=== PATIENT | female | born 1935 | race Two or more races ===

== ENCOUNTER 2016-11-21 16:24 | Observation (INO) | payer MEDICARE ==
[~2016-11-21] VITALS: Ht 152.4 cm; Wt 54.6 kg
[~2016-11-21 16:24] MED LIST: AMLO5TAB2 PO; Clopidogrel Bisulfate PO; LISI40TA PO; LOVA20TA PO; METO-394 PO; RANI150C4 PO
--- NOTE | 2016-11-21 16:33 | ED.REPORT ---
HPI-General Illness Date of Service Nov 21, 2016 ED Provider: Adrian Martinez MD Patient is a 80 year old female with a history of CVA and hypertension who presents to the ED complaining of chest pain onset around 1300. The patient reports that the pain is exacerbated when she tried to walk and improved after resting. She rates the pain as a 7/10 and describes it as an ache. She states that it is in the middle of her chest and radiates up to her arms. Upon arrival to the ED, the patient states that her pain has largely resolved. She denies cough, nausea, vomiting, shortness of breath, fever, chills, vision changes, headache, abdominal pain, diarrhea, constipation, hematuria, hematochezia, rash, itching or sore throat. Nursing Notes Stated Complaint: CHEST PAIN Nursing Notes Reviewed: Yes Allergies: Coded Allergies: sulfamethoxazole (Verified Adverse Reaction, Intermediate, diarrhea, GI upset, 10/09/14) trimethoprim (Verified Adverse Reaction, Intermediate, diarrhea, GI upset , 10/09/14) Scheduled Amlodipine (Amlodipine) 5 Mg Tablet 10 MG PO every afternoon Clopidogrel (Clopidogrel) 75 Mg Tablet 75 MG PO QAM Lisinopril (Lisinopril) 40 Mg Tablet 40 MG PO DAILY Lovastatin (Lovastatin) 20 Mg Tablet 20 MG PO HS Metoprolol Succinate ER (Metoprolol Succinate ER) 100 Mg Tab.er.24h 100 MG PO DAILY Scheduled PRN Ranitidine (Ranitidine) 150 Mg Capsule 150 MG PO BID PRN PRN For Dyspepsia or Heartburn General Time Seen by MD: 16:32 Chief Complaint Chest pain Hx Obtained From: Patient Arrived By: Walk-in Sudden in Onset?: Yes Onset Occurred: 1 - 4 hours ago Symptom Duration: Since onset Location: : Chest Quality: Aching Radiation: : Shoulder Severity: Current: Mild Recent Healthcare: Recent doctor visit Similar Sx Previous: No Past Medical History Past Medical History CVA in 2006 with no residual side effects Hypertension GERD High cholesterol Past Surgical History Cataracts Smoking History Smoker Current Status UNK Social History Alcohol Use: Denies alcohol use Drug Use: Denies drug use Other Social History: Ambulatory Status Independent Review of Systems Full Review of Systems Constitutional: Denies: Chills, Fever Ears / Nose / Throat: Denies: Sore throat Respiratory: Denies: Non-productive cough, Shortness of breath Cardiovascular: Reports: Chest pain GI: Denies: Abdominal pain, Constipation, Diarrhea, Hematochezia, Nausea, Vomiting Female: Denies: Hematuria Musculoskeletal: Reports: Extremity pain Skin: Denies Itching, Denies Rash Neurologic: Denies: Headache, Vision change Complete sys rev & neg: except as marked. Physical Exam Nursing note and vitals reviewed. Constitutional: Well-developed, well-nourished. Not diaphoretic. Head: Normocephalic and atraumatic. Mouth/Throat: Oropharynx is clear and moist. No oropharyngeal exudate. Eyes: EOM are normal. Pupils are equal, round, and reactive to light. Neck: Supple, no tracheal deviation. Cardiovascular: Normal rate, 2/6 systolic murmur present. Equal and intact distal pulses throughout. Pulmonary/Chest: Effort normal and breath sounds normal. No respiratory distress. Abdominal: Soft. No distension. There is no tenderness, rebound, or guarding. Bowel sounds present. Musculoskeletal: Range of motion grossly intact, moving all extremities. No edema or tenderness appreciated. Neurological: AOx3. Grossly nonfocal exam. Strength and sensation intact and equal to bilateral upper and lower extremities. Skin: Warm and dry, no rashes or pallor appreciated. Psychiatric: Appropriate mood and affect. Behavior appears normal. Vital Signs Vital Signs Date Time Temp Pulse Resp B/P Pulse Ox O2 Delivery O2 Flow Rate FiO2 11/21/16 20:43 86 18 137/85 98 11/21/16 19:22 78 16 137/81 98 11/21/16 17:43 74 19 125/57 97 11/21/16 16:34 36.7 84 19 134/59 96 Room Air Initial VS: Reviewed Interpretation & Diagnostics Lab Results Interpretation Result Diagram: 11/21/16 1645 11/21/16 1645 Test 11/21/16 16:45 11/21/16 20:15 White Blood Count 9.5th/mm3 (3.8-10.1) Red Blood Count 3.59mil/mm3 (3.90-5.20) Hemoglobin 9.9g/dL (12.0-15.6) Hematocrit 30.6% (35.0-46.0) Mean Corpuscular Volume 85.2fL (81-100) Mean Corpuscular Hemoglobin 27.6pg (27.0-35.0) Mean Corpuscular Hemoglobin Concent 32.4% (32.0-37.0) Red Cell Distribution Width 14.2% (12.3-15.4) Platelet Count 251bil/L (150-400) Neutrophils (%) (Auto) 70.6% (40-74) Lymphocytes (%) (Auto) 18.9% (14-46) Monocytes (%) (Auto) 8.1% (4-12) Eosinophils (%) (Auto) 1.6% (0-5) Basophils (%) (Auto) 0.4% (0-3) Sodium Level 140mEq/L (134-144) Potassium Level 3.9mEq/L (3.5-5.2) Chloride Level 105mEq/L (97-108) Carbon Dioxide Level 20mmol/L (18-29) Blood Urea Nitrogen 19mg/dL (8-27) Creatinine 0.98mg/dL (0.57-1.00) Estimat Glomerular Filtration Rate 78mL/min (>59) Glucose Level 153mg/dL (60-99) Calcium Level 8.9mg/dL (8.5-10.1) Magnesium Level 2.1mg/dL (1.6-2.6) Total Bilirubin 0.3mg/dL (0.0-1.2) Aspartate Amino Transf (AST/SGOT) 26U/L (0-50) Alanine Aminotransferase (ALT/SGPT) 15U/L (0-32) Alkaline Phosphatase 106U/L (25-165) Total Protein 7.7g/dL (6.4-8.4) Albumin 3.9g/dL (3.4-5.0) Troponin T < 0.010ug/L (0.0-0.011) Thyroid Stimulating Hormone (TSH) 1.830uIU/mL (0.450-4.500) ECG Interpretation ECG Interpretation: no acute ischemic changes Time: 16:43 Interpreted by: ED physician Normal ECG Interpretation: Normal rate (83), Normal sinus rhythm X-Ray Chest Interpretation Chest Xray Interpretation: IMPRESSION: Bibasilar scarring with a slight increased a focal prominence in the right base suggestive of superimposed airspace disease such as atelectasis and/or pneumonia. Dictated by: Pati Bonner M.D. on 11/21/2016 at 18:16 Approved by: Pati Bonner M.D. on 11/21/2016 at 18:17 View: Portable, 1 view Interpretation / Wet Read by: Interpret - Radiologist Re-Eval/Medical Decision Med Decision/Clinical Course In summary, 80-year-old female with a history of CVA presenting to the ED for evaluation of exertional, midsternal chest pain radiating up to both of her shoulders since earlier today. Pain is improved upon arrival to the ED. Differential includes ACS, PE, PTX, aortic dissection, myocarditis/pericarditis , abdominal etiology such as cholecystitis, MSK pain. Pain has been constant since onset several hours prior to arrival; troponin negative. HEART score of 5. EKG demonstrates sinus rhythm with no acute ischemic changes. Low risk for PE by Well's criteria. No evidence of pneumothorax on chest x-ray or exam. Pain not described as tearing through to the back, CXR w/ no evidence of widened mediastinum, stable neuro exam, and equal pulses to bilateral upper and lower extremities; aortic dissection seems very unlikely. Neither clinical presentation, exam, or EKG seem c/w pericarditis or myocarditis. No abdominal pain or tenderness. Chest X-ray demonstrates a possible right base space disease with concern for atelectasis or pneumonia; this is not consistent with her clinical history or presentation - we will hold off on treating with antibiotics for now. Rest of labs reviewed, unremarkable with the exception of a hemoglobin of 9.9, down from 12.7 two years ago - she denies fatigue or blood in stool. Patient given aspirin. Upon reassessment, patient is pain-free. Patient would likely benefit from a stress test for risk stratification given her age, story, and risk factors - plan admission for further management and evaluation, likely stress test in the morning. Patient agreeable to plan, no further questions. Time of Eval: 20:00 Patient Status: Pain resolved Time of Eval: 20:53 Re-Evaluation/Progress Note: Discussed results and plan for admit. Patient understands and agrees to plan. All questions were addressed. Consultation : Referral / Consult Name: Jeffery Tinajero MD Consulted With: Hospitalist Call Returned at: 20:54 Cardiovascular Lab Director: Agrees with eval, Agrees with plan, Accepts admit Counseled Regarding: Diagnosis, Lab results, Need for admission Discharge & Departure Primary Impression: Chest pain Chest pain type: unspecified Qualified Code: R07.9 - Chest pain, unspecified Additional Impression: Pneumonia Pneumonia type: due to unspecified organism Laterality: right Lung location : unspecified part of lung Qualified Code: J18.9 - Pneumonia, unspecified organism Disposition: ADMITTED TO HOSPITAL Discharge Condition All VS Reviewed: Yes Condition: Stable Referrals: Daria Jefferson MD (PCP) Scribe Attestation Portions of this note were transcribed by Audrey Leal. I, Dr. Martinez personally performed the history, physical exam and medical decision-making; I reviewed and confirmed the accuracy of the information in the transcribed note. Signed by: Bennie Hebert, 11/21/16 copies to: Daria Jefferson MD, William B MD Nov 21, 2016 16:33 Darlin Leal Nov 21, 2016 17:06
[2016-11-21 16:34] VITALS: BP 134/59; PULSE 84; RESP 19; O2SAT 96
[2016-11-21 16:58] LABS: BASOPHILS % (AUTO) 0.4 % (0-3); EOSINOPHILS % (AUTO) 1.6 % (0-5); MONOCYTES % (AUTO) 8.1 % (4-12); Mean Corpuscular Hemoglobin 27.6 pg (27.0-35.0); Mean Corpuscular Volume 85.2 fL (81-100); NEUTROPHILS % (AUTO) 70.6 % (40-74); Platelet Count 251 bil/L (150-400)
[2016-11-21 17:21] LABS: TROPONIN T < 0.010 ug/L (0.0-0.011)
[2016-11-21 17:30] LABS: Magnesium 2.1 mg/dL (1.6-2.6)
[2016-11-21 17:43] VITALS: BP 125/57; PULSE 74; RESP 19; O2SAT 97
--- NOTE | 2016-11-21 18:18 | DRSVH ---
PROCEDURE: X-RAY CHEST ONE VIEW, PORTABLE ([id number]) INDICATIONS: CHEST PAIN TECHNIQUE: One view of the chest was acquired. COMPARISON: [facility], CR, XR ABD ACUTE SERIES 3VW, 05/30/2015, 10:38. [facility], CR, CHEST 2VW, 01/06/2013, 11:16. FINDINGS: Surgical changes and devices: Cholecystectomy clips. Lungs and pleura: Mild appearance of streaky bibasilar prominence, slightly more pronounced in the ri ght base when compared to prior exam Mediastinum: Mediastinal contours appear normal. Heart size is normal. Bones and chest wall: No suspicious bony lesions. Overlying soft tissues appear unremarkable. IMPRESSION: Bibasilar scarring with a slight increased a focal prominence in the right base suggestiv e of superimposed airspace disease such as atelectasis and/or pneumonia. Dictated by: Pati Bonner M.D. on 11/21/2016 at 18:16 Approved by: Pati Bonner M.D. on 11/21/2016 at 18:17
[2016-11-21 19:22] VITALS: BP 137/81; PULSE 78; RESP 16; O2SAT 98
[2016-11-21 20:43] VITALS: BP 137/85; PULSE 86; RESP 18; O2SAT 98
[2016-11-21 22:00] VITALS: BP 168/73; PULSE 90; RESP 16; O2SAT 96
--- NOTE | 2016-11-21 22:30 | PCM.HPMED ---
Subjective Date of Service Nov 21, 2016 Primary Provider: Admitting Physician: Jeffery Tinajero MD Primary Care Physician: Daria Jefferson MD Attending Physician: Jeffery Tinajero MD Admit Status: From the Emergency Department Chief Complaint: Chest pain History of Present Illness: Patient is a 80-year-old female with a history of CVA and hypertension who presented to the emergency department complaining of chest pain upon exertion at 1300. Patient reports that chest pain started when she was walking, and resolved after resting for a few minutes. The pain is described as across her chest. She denies radiation to the arm, nausea, vomiting, sweating, headache, pedal edema, dizziness. She admits to a general feeling of uneasiness that persists. She states that she has never had anything like this before. Review of Systems: Complete ROS was performed and pertinent positives and negatives included in the history of present illness. All other findings were negative. Allergies Coded Allergies: sulfamethoxazole (Verified Adverse Reaction, Intermediate, diarrhea, GI upset, 10/09/14) trimethoprim (Verified Adverse Reaction, Intermediate, diarrhea, GI upset , 10/09/14) Home Medications ([Clopidogrel Bisulfate]) 75 MG TABLET 75 MG PO DAILY Amlodipine (Amlodipine) 5 Mg Tablet 10 MG PO every afternoon Lisinopril (Lisinopril) 40 Mg Tablet 40 MG PO DAILY Lovastatin (Lovastatin) 20 Mg Tablet 20 MG PO HS Metoprolol Succinate ER (Metoprolol Succinate ER) 100 Mg Tab.er.24h 100 MG PO DAILY Ranitidine (Ranitidine) 150 Mg Capsule 150 MG PO BID PRN PRN For Dyspepsia or Heartburn PMH CVA in 2005 with no residual side effects Hypertension GERD High cholesterol Surgical History Cataracts section Family History Mother of [place] in late 70s Social History Hx Alcohol Use: No Hx Substance Use: No Hx Tobacco Use: No Smoking Status: Never Smoker Living Arrangement: with Family () Exam Vital Signs Vital Sign - Last Date Time Temp Pulse Resp B/P Pulse Ox O2 Delivery O2 Flow Rate FiO2 11/21/16 22:00 36.6 90 16 168/73 96 Room Air Exam General: Nondistressed, well-developed well-nourished female HEENT: NC/AT, PERRLA, EOM intact. Nontender sinuses, no nasal discharge. Good dentation, no erythema, nor exudate present in oropharynx. No thyromegaly appreciated. CV: Regular rate and rhythm, no murmurs, gallops, or rubs appreciated. No clubbing or cyanosis. No JVD. Pulses +2 bilaterally upper and lower extremity. Pain not reproducible with palpation RESP: Clear to auscultation bilaterally, no wheezes or rhonchi appreciated. ABD: Bowel sounds normal, nondistended, nontender to palpation. EXT: No joint swelling, no edema appreciated LYMPH: No cervical or axillary adenopathy appreciated NEURO: Symmetric face, cranial nerves grossly intact, strength intact bilaterally upper and lower extremities, sensation to light touch intact bilaterally upper and lower extremities. PSYCH: Linear and appropriate conversation. Patient oriented to person, that she is in a hospital but did not know which one, believes that it is June 2014 , and was unable to name the president although knew who he is. Per her 's report to emergency department physician, this is her baseline. Skin: No rashes or ecchymosis appreciated Lab and Diagnostics Result Diagram: 11/21/16 1645 11/21/16 1645 Assessment & Plan Patient is a 80-year-old female that presented to the emergency department with chest pain and a history of CVA 1. Chest pain with exertion, present upon admission and ongoing -Chest pain resolved with rest, and has not returned. Troponin negative 2. -Patient continues to have a feeling of an easy without pain. -Start aspirin 81 mg -Order nitroglycerin when necessary recurrent chest pain -Telemetry -Stress echo in the morning 2. Hypertension -Continue home medication of amlodipine 5 mg, lisinopril 40 mg, and metoprolol ER 100 mg 3. Hyperlipidemia -Continue home medication of lovastatin 20 4. History of CVA - Continue clopidogrel Patient is being admitted as observation status. I expect her to spend less than 2 midnights in the hospital Pain Evaluation: Adequate Pain Control GI Prophylaxis: H2 eliza VTE Prophylaxis: SCDs Resuscitation Status: CPR: Attempt Resuscitation Attending Statement The patient was seen and examined together with Dr. Fuller on 11/21 and I agree with the history, exam and plan as outlined in the note above. Lety Fuller DO Nov 21, 2016 22:30 Jeffery Tinajero MD Nov 22, 2016 02:01
[2016-11-21] MEDS ORDERED: Ondansetron 2 mg/mL 2 mL Inj IVPUSH PRN (22:45)
[2016-11-21] MEDS ORDERED: Atropine 1 mg/10 mL (Code) Syringe IVPUSH PRN (22:45)
[2016-11-21] MEDS ORDERED: Senna-Docusate 8.6-50 mg Tablet PO PRN (22:45)
[2016-11-21] MEDS ORDERED: Alum-Mag Hydrox-Simeth 30 mL Suspension PO PRN (22:45)
[2016-11-21] MEDS ORDERED: Polyethylene Glycol (PEG) 17 Gm Powder PO PRN (22:45)
[2016-11-21] MEDS ORDERED: CLOP75TA28 PO (23:21)
--- NOTE | 2016-11-22 02:48 | NUR ---
Admit to room 3016 @ 22:00 with CP. VS Hypertensive BP 168/73 p 90 96% on RA. Pain 0/10, oriented to room and POC on whiteboard. Patient forgetful regarding medical history and current medications. NPO @ RI for nuc med stress test in AM.
--- NOTE | 2016-11-22 02:53 | NUR ---
Med Rec completed by Lety Estrada @23:24.
[2016-11-22 03:10] VITALS: PULSE 87
[2016-11-22 04:16] VITALS: BP 117/61; PULSE 96; RESP 16; O2SAT 96
[2016-11-22 06:18] LABS: BASOPHILS % (AUTO) 0.4 % (0-3); EOSINOPHILS % (AUTO) 1.4 % (0-5); MONOCYTES % (AUTO) 7.5 % (4-12); Mean Corpuscular Volume 84.8 fL (81-100); Platelet Count 273 bil/L (150-400)
[2016-11-22 08:00] VITALS: PULSE 81
[2016-11-22] MEDS ORDERED: Non-Formulary Medication (Metoprolol Succinate ER 100 MG) PO SCH (08:30)
[2016-11-22 09:34] VITALS: BP 132/67; PULSE 95; RESP 20; O2SAT 96
[2016-11-22 10:23] LABS: APPEARANCE,URINE CLEAR (CLEAR,HAZY); COLOR,URINE YELLOW (YELLOW)
[2016-11-22 10:24] LABS: OCCULT BLOOD,URINE TRACE (NEGATIVE); UROBILINOGEN,URINE NORMAL (NORMAL)
--- NOTE | 2016-11-22 11:39 | NUR ---
To Cardiac stress test. pt ordered for cardiac stress test. pt aware and agreeable. pt wearing hospital pants and voided. nicole. . property assessment monitor informed of testing. pt transported via wheelchair.
--- NOTE | 2016-11-22 13:11 | NUR ---
return to room 3016 telemetry replaced secured entrance monitor informed.
[2016-11-22 13:27] VITALS: BP 126/75; PULSE 94; RESP 18; O2SAT 96
--- NOTE | 2016-11-22 15:05 | NUR ---
Stress test pt back to [facility] for further imaging. pt transported via wheelchair. a/o x3. chemical treatment plant technician informed of departure and return.
--- NOTE | 2016-11-22 16:18 | PCM.DIMED ---
Discharge Instructions Date of Service Nov 22, 2016 Dates of Hospitalization Nov 21, 2016 at 21:31 Discharge Diagnosis Discharge Diagnosis 1. Chest pain with exertion, present upon admission -Chest pain resolved,ACS ruled out 2. Hypertension 3. Hyperlipidemia 4. History of CVA Diet Discharge Diet: Low fat, Low Sodium, Heart Healthy Activity Discharge Activity: Limited until seen by PCP Call your provider Call your provider for: Fever or Chills, Shortness of breath, Bleeding, Chest pain, Vomitting, Excessive diarrhea, Weakness (unilateral) Patient Instructions Patient Instructions You were hospitalized due to chest pain. Pain resolved. Stress test shows prior infarct but no ischemia. Please continue home medications as usual. Please take Protonix as prescribed for suspected acid reflux. Please follow-up with PCP in 1 week. Follow-up Provider: Daria Jefferson MD Follow-up with PCP in: 1 week Ryan Weiss MD Nov 22, 2016 16:18
--- NOTE | 2016-11-22 16:26 | DRSVH ---
PROCEDURE: 1 DAY PHARMACOLOGICAL STRESS TEST Rest and pharmacological stress myocardial perfusion SPECT with gated imaging and ejection fraction RADIOPHARMACEUTICAL: 9.1 mCi Tc-99m tetrafosmin IV at rest and 22.7 mCi Tc-99m tetrafosmin IV at pea k effect of pharmacological stress. A [id number] was performed. INDICATIONS: CHEST PAIN. TECHNIQUE: Radiopharmaceutical was injected at peak stress test, and also at rest. SPECT images wer e obtained. SPECT myocardial perfusion images were displayed in short axis, horizontal long axis, an d vertical long axis views. Gated images were reviewed using FlowCoQUANT software. COMPARISON: None. CARDIAC STRESS: A pharmacologic stress test was performed under the supervision of an attending staff, using an infus ion of LexiScan (0.4 mg/5 mL). Hemodynamic data: There is normal blood pressure and heart rate response to pharmacologic stress. Symptoms: The patient denied anginal chest pain. Aminophylline: None. EKG: No diagnostic changes of ischemia; no ectopy. FINDINGS: Raw data: There is good myocardial uptake of radiotracer. No significant motion artifacts. Left ventricle function: Gated images demonstrate normal left ventricular wall thickening. Mild hypo kinesis noted in the septal and apical santamaria. No subjective evidence of transient ischemic dilation . Left ventricle resting end diastolic volume is 32 mL. Left ventricle stress ejection fraction is 83% ; normal range is above 45%. Myocardial perfusion: There is a large, fixed perfusion defect involving the anterior and apical wal ls compatible with area of prior infarction. No reversible perfusion defects are identified that woul d be consistent with ischemia. IMPRESSION: 1. Abnormal study demonstrating large prior infarct involving the distal anterior and apical santamaria. 2. No areas of ischemia identified. 3. Mild hypokinesis involving the apical and septal santamaria. 4. Normal stress LVEF. 5. Normal hemodynamic response to pharmacologic stress. PQRS ATTESTATIONS: Measure 322 - Is this imaging test primarily performed on a low-risk surgery patient for preoperative evaluation within 30 days preceding their low-risk non-cardiac surgery? Low-risk surgery is defined as cardiac or myocardial infarction less than 1%, including (but not limited to) endoscopic pr ocedures, superficial procedures, cataract surgery, and excisional breast surgery: Answer: No Measure 323 - Is this imaging test performed primarily for the monitoring of an asymptomatic patient who had percutaneous coronary intervention on the visit date or within 2 years of the visit date? An swer: No Measure 324 - Is this imaging test performed primarily for the initial detection and risk assessment on an asymptomatic, low coronary heart disease patient? Low CHD risk definition = clinicians should consider the maximum number of available patient factors used to estimate risk based on [place] (A TP III criteria), typically age, gender, diabetes, smoking status, and use of blood pressure medicati on, and integrate age appropriate estimates for missing elements, such as LDL or standard blood press ure. Answer: No Dictated by: Liz Sprague MD, PhD on 11/22/2016 at 16:10 Approved by: Liz Sprague MD, PhD on 11/22/2016 at 16:24
--- NOTE | 2016-11-22 17:10 | NUR ---
Discharge pt ordered for discharge home. discharge instructions and medications reviewed with patient and . wheelchair offered, pt refused. pt ambulated out with steady gait and all belongings at about 1705.
--- NOTE | 2016-11-22 17:13 | NUR ---
Social Work Note: Brief Note/Discharge Data& Assessment: EMR reviewed. Per MD pt is medically ready to discharge. Pt left with her spouse prior to [employer] checking in to confirm the discharge plan. Snehal Fernandez is a 80 year old female admitted under observation for chest pain. Pt underwent stress test today to confirm that pt is medically clear to go home, per pt is medically ready to discharge home. Pt ambulating at baseline. Pt is from [place] with family and independent at baseline. MD does not identify any concerns for pt capacity for self care. Pt has Medicare insurance coverage and sees renetta Jefferson Md for primary care. No other discharge needs or MD orders identified. Plan: Per pt is medically ready to discharge home via POV. No other discharge needs or MD orders identified. VICTORINA Sidhu
--- NOTE | 2016-11-23 09:35 | PCM.DC.MED ---
Discharge Summary Date of Service Nov 23, 2016 Dates of Hospitalization Date of Hospital Admission Nov 21, 2016 at 21:31 Date of Discharge: Nov 23, 2016 Providers: Admitting Physician: Jeffery Tinajero MD Primary Care Physician: Daria Jefferson MD Attending Physician: Ryan Weiss MD Diagnosis at Time of Discharge Diagnosis at Time of Discharge 1. Chest pain with exertion, present upon admission -Chest pain resolved,ACS ruled out 2. Hypertension 3. Hyperlipidemia 4. History of CVA Procedures Other Diagnostics PROCEDURE: 1 DAY PHARMACOLOGICAL STRESS TEST Rest and pharmacological stress myocardial perfusion SPECT with gated imaging and ejection fraction RADIOPHARMACEUTICAL: 9.1 mCi Tc-99m tetrafosmin IV at rest and 22.7 mCi Tc-99m tetrafosmin IV at peak effect of pharmacological stress. A [id number]-swyewhjh was performed. INDICATIONS: CHEST PAIN. TECHNIQUE: Radiopharmaceutical was injected at peak stress test, and also at rest. SPECT images were obtained. SPECT myocardial perfusion images were displayed in short axis, horizontal long axis, and vertical long axis views. Gated images were reviewed using Cloze software. COMPARISON: None. CARDIAC STRESS: A pharmacologic stress test was performed under the supervision of an attending staff, using an infusion of LexiScan (0.4 mg/5 mL). Hemodynamic data: There is normal blood pressure and heart rate response to pharmacologic stress. Symptoms: The patient denied anginal chest pain. Aminophylline: None. EKG: No diagnostic changes of ischemia; no ectopy. FINDINGS: Raw data: There is good myocardial uptake of radiotracer. No significant motion artifacts. Left ventricle function: Gated images demonstrate normal left ventricular wall thickening. Mild hypokinesis noted in the septal and apical santamaria. No subjective evidence of transient ischemic dilation .Left ventricle resting end diastolic volume is 32 mL. Left ventricle stress ejection fraction is 83%; normal range is above 45%. Myocardial perfusion: There is a large, fixed perfusion defect involving the anterior and apical santamaria compatible with area of prior infarction. No reversible perfusion defects are identified that would be consistent with ischemia. IMPRESSION: 1. Abnormal study demonstrating large prior infarct involving the distal anterior and apical santamaria. 2. No areas of ischemia identified. 3. Mild hypokinesis involving the apical and septal santamaria. 4. Normal stress LVEF. 5. Normal hemodynamic response to pharmacologic stress. PQRS ATTESTATIONS: Measure 322 - Is this imaging test primarily performed on a low-risk surgery patient for preoperative evaluation within 30 days preceding their low-risk non- cardiac surgery? Low-risk surgery is defined as cardiac or myocardial infarction less than 1%, including (but not limited to) endoscopic procedures, superficial procedures, cataract surgery, and excisional breast surgery: Answer : No Measure 323 - Is this imaging test performed primarily for the monitoring of an asymptomatic patient who had percutaneous coronary intervention on the visit date or within 2 years of the visit date? Answer: No Measure 324 - Is this imaging test performed primarily for the initial detection and risk assessment on an asymptomatic, low coronary heart disease patient? Low CHD risk definition = clinicians should consider the maximum number of available patient factors used to estimate risk based on [place] ( ATP III criteria), typically age, gender, diabetes, smoking status, and use of blood pressure medication, and integrate age appropriate estimates for missing elements, such as LDL or standard blood pressure. Answer: No Dictated by: Liz Sprague MD, PhD on 11/22/2016 at 16:10 Brief History per HPI Patient is a 80-year-old female with a history of CVA and hypertension who presented to the emergency department complaining of chest pain upon exertion at 1300. Patient reports that chest pain started when she was walking, and resolved after resting for a few minutes. The pain is described as across her chest. She denies radiation to the arm, nausea, vomiting, sweating, headache, pedal edema, dizziness. She admits to a general feeling of uneasiness that persists. She states that she has never had anything like this before. Hospital Course Patient is a 80-year-old female that presented to the emergency department with chest pain and a history of CVA 1. Chest pain with exertion, present upon admission and ongoing -Chest pain resolved . Troponin negative 2. -c/w aspirin 81 mg -Stress negative for ischemia ,only prior infarct -c/w rantidine for possible GERD 2. Hypertension -Continue home medication of amlodipine 5 mg, lisinopril 40 mg, and metoprolol ER 100 mg 3. Hyperlipidemia -Continue home medication of lovastatin 20 4. History of CVA - Continue clopidogrel discharged home Exam Vital Signs (Last) Date Time Temp Pulse Resp B/P Pulse Ox O2 Delivery O2 Flow Rate FiO2 11/22/16 13:27 36.6 94 18 126/75 96 Room Air Exam General: Nondistressed, well-developed well-nourished female HEENT: NC/AT, PERRLA, EOM intact. Nontender sinuses, no nasal discharge. Good dentation, no erythema, nor exudate present in oropharynx. No thyromegaly appreciated. CV: Regular rate and rhythm, no murmurs, gallops, or rubs appreciated. No clubbing or cyanosis. No JVD. Pulses +2 bilaterally upper and lower extremity. Pain not reproducible with palpation RESP: Clear to auscultation bilaterally, no wheezes or rhonchi appreciated. ABD: Bowel sounds normal, nondistended, nontender to palpation. EXT: No joint swelling, no edema appreciated LYMPH: No cervical or axillary adenopathy appreciated NEURO: Symmetric face, cranial nerves grossly intact, strength intact bilaterally upper and lower extremities, sensation to light touch intact bilaterally upper and lower extremities. PSYCH: Linear and appropriate conversation. Patient oriented to person, that she is in a hospital but did not know which one, believes that it is June 2014 , and was unable to name the president although knew who he is. Per her 's report to emergency department physician, this is her baseline. Skin: No rashes or ecchymosis appreciated Test 11/21/16 16:45 11/21/16 20:15 11/22/16 05:00 11/22/16 09:14 Hemoglobin A1c 6.3% (4.8-5.6) Magnesium Level 2.1mg/dL (1.6-2.6) Total Bilirubin 0.3mg/dL (0.0-1.2) Aspartate Amino Transf (AST/SGOT) 26U/L (0-50) Alanine Aminotransferase (ALT/SGPT) 15U/L (0-32) Alkaline Phosphatase 106U/L (25-165) Total Protein 7.7g/dL (6.4-8.4) Albumin 3.9g/dL (3.4-5.0) Thyroid Stimulating Hormone (TSH) 1.830uIU/mL (0.450-4.500) White Blood Count 11.0th/mm3 (3.8-10.1) Red Blood Count 3.82mil/mm3 (3.90-5.20) Hemoglobin 10.3g/dL (12.0-15.6) Hematocrit 32.4% (35.0-46.0) Mean Corpuscular Volume 84.8fL (81-100) Mean Corpuscular Hemoglobin 27.0pg (27.0-35.0) Mean Corpuscular Hemoglobin Concent 31.8% (32.0-37.0) Red Cell Distribution Width 14.2% (12.3-15.4) Platelet Count 273bil/L (150-400) Neutrophils (%) (Auto) 71.0% (40-74) Lymphocytes (%) (Auto) 19.4% (14-46) Monocytes (%) (Auto) 7.5% (4-12) Eosinophils (%) (Auto) 1.4% (0-5) Basophils (%) (Auto) 0.4% (0-3) Sodium Level 141mEq/L (134-144) Potassium Level 3.9mEq/L (3.5-5.2) Chloride Level 104mEq/L (97-108) Carbon Dioxide Level 20mmol/L (18-29) Blood Urea Nitrogen 20mg/dL (8-27) Creatinine 0.89mg/dL (0.57-1.00) Estimat Glomerular Filtration Rate 88mL/min (>59) Glucose Level 115mg/dL (60-99) Calcium Level 9.1mg/dL (8.5-10.1) Troponin T 0.010ug/L (0.0-0.011) Test 11/22/16 10:00 Urine Color Yellow (YELLOW) Urine Appearance Clear (CLEAR,HAZY) Urine pH 7.0 (5.0-8.0) Urine Specific [place] 1.010 (1.003-1.035) Urine Protein Negativemg/dL (NEG,TRACE) Urine Glucose (UA) Negativemg/dL (NEGATIVE) Urine Ketones Negativemg/dL (NEGATIVE) Urine Occult Blood Trace (NEGATIVE) Urine Nitrite Negative (NEGATIVE) Urine Bilirubin Negative (NEGATIVE) Urine Urobilinogen Normalmg/dL (NORMAL) Urine Leukocyte Esterase Negative (NEGATIVE) Urine RBC 3-10/hpf (0-2) Urine WBC 0-5/hpf (0-5) Urine Epithelial Cells Occasional/hpf (NONE-MOD) Urine Crystals None seen (NONE SEEN) Urine Bacteria Few/hpf (NONE-FEW) Urine Hyaline Casts None/lpf (NONE) Urine Granular Casts None seen (NONE SEEN) Urine Waxy Casts None seen (NONE SEEN) Urine Red Blood Cell Casts None seen (NONE SEEN) Urine White Blood Cell Casts None seen (NONE SEEN) Urine Mucus None seen (None Seen) Urine Trichomonas None seen (NONE SEEN) Urine Yeast None (NONE SEEN) Urinalysis Comment None Urine Culture Reflexed Not indicated Discharge Medications Discharge Medications Amlodipine (Amlodipine) 5 Mg Tablet 10 MG PO every afternoon Prescribed by: BALAJI TORREZ MD Clopidogrel (Clopidogrel) 75 Mg Tablet 75 MG PO QAM (Reported) Lisinopril (Lisinopril) 40 Mg Tablet 40 MG PO DAILY (Reported) Lovastatin (Lovastatin) 20 Mg Tablet 20 MG PO HS (Reported) Metoprolol Succinate ER (Metoprolol Succinate ER) 100 Mg Tab.er.24h 100 MG PO DAILY (Reported) As needed Ranitidine (Ranitidine) 150 Mg Capsule 150 MG PO BID PRN PRN For Dyspepsia or Heartburn (Reported) Followup Plan Disposition: home Discharge Diet: Low fat, Low Sodium, Heart Healthy Discharge Activity: Limited until seen by PCP Patient Instructions You were hospitalized due to chest pain. Pain resolved. Stress test shows prior infarct but no ischemia. Please continue home medications as usual. Please take Protonix as prescribed for suspected acid reflux. Please follow-up with PCP in 1 week. Follow-up Provider: Daria Jefferson MD Follow-up with PCP in: 1 week copies to: Daria Jefferson MD, Melaku MD Nov 23, 2016 09:35
== END 2016-11-22 17:43 | disposition home or self-care (01) ==
LOC: SED 16:24 → MPC 21:31
PROVIDERS: ADMIT Hospitalist; ATTEND Internal Medicine
DX: R07.89 Other chest pain (principal); I10 Essential (primary) hypertension; E78.5 Hyperlipidemia, unspecified; K21.9 Gastro-esophageal reflux disease without esophagitis; Z86.73 Personal history of transient ischemic attack (TIA), and cerebral infarction without residual deficits; Z79.899 Other long term (current) drug therapy
CPT/HCPCS: 36415; 71010; 78452; 80048; 80053; 81000; 83036; 83735; 84443; 84484; 85025; 93005; 93017; 99285; A9502; G0378; J2785